=== PATIENT | male | born 1965 | race Caucasian/White ===

== ENCOUNTER 2017-06-25 09:08 | Observation (INO) | payer BC ==
[2017-06-25 10:11] LABS: ABS Basophils 0 10^3/ul (0-0.2); ABS Eosinophils 0.1 10^3/ul (0-0.6); ABS Monocytes 0.6 10^3/ul (0-0.8); ABS Neutrophils 3.9 10^3/ul (1.5-7.7); ABS Nucleated RBC 0 10^3/ul; Eosinophil % 1.6 % (0-6); Hematocrit 42 % (42-52); Hemoglobin 14.9 g/dl (14.0-18.0); Lymphocyte % 17.5 % (25-47); Mean Corpuscular HGB Conc 36 g/dl (31-36); Mean Corpuscular Hemoglobin 32 pg (27-31); Mean Corpuscular Volume 89 fL (80-94); Mean Platelet Volume 8.3 um3 (7.4-10.4); Nucleated Red Blood Cells % 0; Platelet Count 126 10^3/ul (150-450); Red Blood Count 4.73 10^6/ul (4.0-5.4); Red Cell Distribution Width 13 % (10.5-15); White Blood Count 5.7 10^3/ul (3.5-10.8)
[2017-06-25 10:34] LABS: EGFR Non-African American 55.8 (>60)
--- NOTE | 2017-06-25 10:37 | RAD ---
INDICATION: Hypertension COMPARISON: None TECHNIQUE: An AP portable view obtained at 1007 hours is submitted. FINDINGS: Bones/Soft Tissues: There are no acute bony findings. Cardiomediastinal: The cardiomediastinal silhouette is normal. Lungs: There are no infiltrates. Pleura: There are no pleural effusions. Other: None IMPRESSION: NO ACTIVE DISEASE.
[2017-06-25] MEDS ORDERED: Aspirin 81 mg CHEW TAB* 81 MG TAB.CHEW PO ONE (11:06)
[2017-06-25] MEDS ORDERED: Metoprolol Tartrate TAB* 25 MG PO ONE (11:06)
[2017-06-25] MEDS ORDERED: Potassium Chlor TAB* 20 MEQ TAB.ER PO ONE ×2 (11:08→16:50)
--- NOTE | 2017-06-25 11:16 | ED ---
Amos Dow Gabriel, scribed for Kevin Serrano MD on 06/25/17 at 0954 . Hypertension - HPI Summary HPI Summary: This patient is a 51 year old M presenting to [facility] c/o blurred vision that began this morning. Pt began taking 2.5mg of indapamide 9 days ago, 7 days ago the pt began having ZHONG, nausea, and back pain. Pt slept most of the day yesterday but felt slightly better this morning. He believes he is having a poor reaction to his new medication. He states his vision is fine up close but he is unable to see anything far away. Patient reports one episode of diarrhea. Patient denies eye pain and ZHONG. - History of Current Complaint Chief Complaint: EDHypertension Stated Complaint: GENERAL ILL, POSS REACTION TO MED Time Seen by Provider: 06/25/17 09:34 Hx Obtained From: Patient Onset/Duration: Still Present Timing: Constant Associated Signs & Symptoms: Negative - eye pain and ZHONG, Other: - one episode of diarrhea and blurred vision - Allergies/Home Medications Allergies/Adverse Reactions: Allergies Allergy/AdvReac Type Severity Reaction Status Date / Time cephalexin [From Keflex] Allergy Diarrhea Verified 06/25/17 09:20 Home Medications: Home Medications Indapamide TAB* [Lozol TAB*] 2.5 mg PO DAILY 06/25/17 [History Confirmed ] Losartan TAB* [Cozaar TAB*] 100 mg PO DAILY 06/25/17 [History Confirmed 06/25/17 ] Metoprolol Succinate XL TAB* [Toprol XL TAB*] 50 mg PO DAILY 06/25/17 [History Confirmed 06/25/17] amLODIPine TAB* [Norvasc 5 mg TAB*] 10 mg PO DAILY 06/25/17 [History Confirmed 06/25/17] PMH/Surg Hx/FS Hx/Imm Hx Endocrine/Hematology History: Denies: Hx Blood Disorders, Hx Blood Transfusions, Hx Bone Marrow Disease, Hx Diabetes, Hx Thyroid Disease, Hx Anemia Cardiovascular History: Reports: Hx Hypertension Denies: Hx Angioplasty, Hx Hypercholesterolemia Respiratory History: Denies: Hx Chronic Obstructive Pulmonary Disease (COPD) GI History: Denies: Hx Gall Bladder Disease History: Reports: Other Problems/Disorders - prostate CA Sensory History: Reports: Hx Contacts or Glasses Opthamlomology History: Reports: Hx Contacts or Glasses EENT History: Denies: Pharyngitis Psychiatric History: Denies: Hx Community Mental Health Tx - Cancer History Cancer Type, Location and Year: Prostate Infectious Disease History: No Infectious Disease History: Denies: Traveled Outside the [place] in Last 30 Days - Family History Known Family History: Positive: Cardiac Disease, Hypertension, Respiratory Disease Negative: Diabetes, Renal Disease - Social History Occupation: Employed Full-time Alcohol Use: None Substance Use Type: Reports: None Smoking Status (MU): Never Smoked Tobacco Review of Systems Eyes: Negative - eye pain Positive: Blurred Vision Positive: Diarrhea, Nausea Musculoskeletal: Other - back pain Negative: Headache All Other Systems Reviewed And Are Negative: Yes Physical Exam - Summary Physical Exam Summary: VITAL SIGNS: Reviewed. GENERAL: Patient is a well-developed and nourished male who is lying comfortable in the stretcher. Patient is not in any acute respiratory distress. HEAD AND FACE: No signs of trauma. No ecchymosis, hematomas or skull depressions. No sinus tenderness. EYES: PERRLA, EOMI x 2, No injected conjunctiva, no nystagmus. EARS: Hearing grossly intact. Ear canals and tympanic membranes are within normal limits. MOUTH: Oropharynx within normal limits. NECK: Supple, trachea is midline, no adenopathy, no JVD, no carotid bruit, no c- spine tenderness, neck with full ROM. CHEST: Symmetric, no tenderness at palpation LUNGS: Clear to auscultation bilaterally. No wheezing or crackles. CVS: Regular rate and rhythm, S1 and S2 present, no murmurs or gallops appreciated. ABDOMEN: Soft, non-tender. No signs of distention. No rebound no guarding, and no masses palpated. Bowel sounds are normal. EXTREMITIES: FROM in all major joints, no edema, no cyanosis or clubbing. NEURO: Alert and oriented x 3. No acute neurological deficits. Speech is normal and follows commands. SKIN: Dry and warm Vision acuity: with glasses 20/25 left and 20/20 right Triage Information Reviewed: Yes Vital Signs On Initial Exam: Initial Vitals Temp Pulse Resp BP Pulse Ox 98.3 F 92 18 145/79 96 06/25/17 09:12 06/25/17 09:12 06/25/17 09:12 06/25/17 09:12 06/25/17 09:12 Vital Signs Reviewed: Yes Diagnostics - Vital Signs Vital Signs Temp Pulse Resp BP Pulse Ox 06/25/17 09:12 98.3 F 92 18 145/79 96 - Laboratory Lab Results: Lab Results 06/25/17 06/25/17 06/25/17 Range/Units 10:03 10:03 10:03 WBC 5.7 (3.5-10.8) 10^3/ul RBC 4.73 (4.0-5.4) 10^6/ul Hgb 14.9 (14.0-18.0) g/dl Hct 42 (42-52) % MCV 89 (80-94) fL MCH 32 H (27-31) pg MCHC 36 (31-36) g/dl RDW 13 (10.5-15) % Plt Count 126 L (150-450) 10^3/ul MPV 8.3 (7.4-10.4) um3 Neut % (Auto) 69.1 (38-83) % Lymph % (Auto) 17.5 L (25-47) % Platte % (Auto) 11.1 H (0-7) % Eos % (Auto) 1.6 (0-6) % Baso % (Auto) 0.7 (0-2) % Absolute Neuts (auto) 3.9 (1.5-7.7) 10^3/ul Absolute Lymphs (auto) 1.0 (1.0-4.8) 10^3/ul Absolute Monos (auto) 0.6 (0-0.8) 10^3/ul Absolute Eos (auto) 0.1 (0-0.6) 10^3/ul Absolute Basos (auto) 0 (0-0.2) 10^3/ul Absolute Nucleated RBC 0 10^3/ul Nucleated RBC % 0 Sodium 135 L (139-145) mmol/L Potassium 3.2 L (3.5-5.0) mmol/L Chloride 96 L (101-111) mmol/L Carbon Dioxide 28 (22-32) mmol/L Anion Gap 11 (2-11) mmol/L BUN 18 (6-24) mg/dL Creatinine 1.34 H (0.67-1.17) mg/dL Est GFR ( Amer) 71.7 (>60) Est GFR (Non-Af Amer) 55.8 (>60) BUN/Creatinine Ratio 13.4 (8-20) Glucose 104 H (70-100) mg/dL Lactic Acid 1.0 (0.5-2.0) mmol/L Calcium 9.2 (8.6-10.3) mg/dL Magnesium 1.9 (1.9-2.7) mg/dL Total Bilirubin 0.90 (0.2-1.0) mg/dL AST 34 (13-39) U/L ALT 30 (7-52) U/L Alkaline Phosphatase 80 (34-104) U/L Total Creatine Kinase 318 H (10-223) U/L Troponin I Pending B-Natriuretic Peptide ( - 100) pg/mL Total Protein 7.3 (6.4-8.9) g/dL Albumin 4.2 (3.2-5.2) g/dL Globulin 3.1 (2-4) g/dL Albumin/Globulin Ratio 1.4 (1-3) 05//18 Range/Units 10:03 WBC (3.5-10.8) 10^3/ul RBC (4.0-5.4) 10^6/ul Hgb (14.0-18.0) g/dl Hct (42-52) % MCV (80-94) fL MCH (27-31) pg MCHC (31-36) g/dl RDW (10.5-15) % Plt Count (150-450) 10^3/ul MPV (7.4-10.4) um3 Neut % (Auto) (38-83) % Lymph % (Auto) (25-47) % Platte % (Auto) (0-7) % Eos % (Auto) (0-6) % Baso % (Auto) (0-2) % Absolute Neuts (auto) (1.5-7.7) 10^3/ul Absolute Lymphs (auto) (1.0-4.8) 10^3/ul Absolute Monos (auto) (0-0.8) 10^3/ul Absolute Eos (auto) (0-0.6) 10^3/ul Absolute Basos (auto) (0-0.2) 10^3/ul Absolute Nucleated RBC 10^3/ul Nucleated RBC % Sodium (139-145) mmol/L Potassium (3.5-5.0) mmol/L Chloride (101-111) mmol/L Carbon Dioxide (22-32) mmol/L Anion Gap (2-11) mmol/L BUN (6-24) mg/dL Creatinine (0.67-1.17) mg/dL Est GFR ( Amer) (>60) Est GFR (Non-Af Amer) (>60) BUN/Creatinine Ratio (8-20) Glucose (70-100) mg/dL Lactic Acid (0.5-2.0) mmol/L Calcium (8.6-10.3) mg/dL Magnesium (1.9-2.7) mg/dL Total Bilirubin (0.2-1.0) mg/dL AST (13-39) U/L ALT (7-52) U/L Alkaline Phosphatase (34-104) U/L Total Creatine Kinase (10-223) U/L Troponin I B-Natriuretic Peptide 32 ( - 100) pg/mL Total Protein (6.4-8.9) g/dL Albumin (3.2-5.2) g/dL Globulin (2-4) g/dL Albumin/Globulin Ratio (1-3) Result Diagrams: 06/25/17 10:03 06/25/17 10:03 Lab Statement: Any lab studies that have been ordered have been reviewed, and results considered in the medical decision making process. - EKG 10:06 Cardiac Rate: NL EKG Rhythm: Sinus Rhythm - at 90 BPM EKG Interpretation: No ST elevations, nml axis. Hypertension Course/Dx - Course Assessment/Plan: This patient is a 59-year-old male who presents to the emergency room with a chief complaint of shortness of breath. 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 Patient reports that he has a productive cough with clear discharge. He denies any chest pain or palpitations. In the ED course the patient was placed on a lunchroom monitor, IV access was obtained. He is tender with a DuoNeb and Solu-Medrol for the shortness of breath and possible COPD exacerbation. Blood tests results without any significant abnormality except for glucose of 265 and the C- reactive protein was 6.8. ABG shows pH of 7.3 PCO2 48 PO2 86 and O2 sat 98% 3 L of oxygen. After the patient was given the symptoms have improved except that the patient is a slightly tachycardic between 100 to 110. I offered the patient a chest CTA to rule out PE however the patient reports that he is normal requesting heart rate therefore he declined the chest CTA. he reports that he is feeling better and back to his baseline. Therefore since the chest x -ray shows no pneumonia, he is feeling better the patient will be discharged home with follow-up with PCP. Patient hemodynamically stable at a strain to 3. I discussed all the findings and test results with the patient. Patient was instructed to return to the emergency room immediately if any of the symptoms return or worsens. Plan of care was discussed with the patient and understands and agrees. All questions were answered at patient satisfaction. There were no further complaints or concerns. Lung exam before discharge: CTA B/L. Good air exchange. No wheezing or crackles heard. CVS: S1 and S2 present. No murmurs appreciated. Patient is alert and oriented x 3. Patient is hemodynamically stable. Patient will be discharged home with follow up PCP in the next 2-3 days - Diagnoses Differential Diagnosis/HQI PQRI: Hypertension - COPD, asthma, pneumonia, bronchitis. Provider Diagnoses: COPD exacerbation Discharge - Sign-Out/Discharge Documenting (check all that apply): Discharge/Admit/Transfer - Discharge Plan Condition: Stable Disposition: HOME Referrals: Gage Amezcua MD [Primary Care Provider] - - Billing Disposition and Condition Condition: STABLE Disposition: HOME The documentation as recorded by the Amos avina Gabriel accurately reflects the service I personally performed and the decisions made by me, Kevin Serrano MD.
--- NOTE | 2017-06-25 11:58 | RAD ---
HISTORY: Blurry vision COMPARISONS: None TECHNIQUE: Multiple contiguous axial CT scans were obtained of the head without intravenous contrast. FINDINGS: HEMORRHAGE/INFARCT: There is no hemorrhage or acute infarct. MASSES/SHIFT: There is no mass or shift. EXTRA-AXIAL SPACES: There are no extra-axial fluid collections. SULCI AND VENTRICLES: The sulci and ventricles are normal in size and position for the patient's stated age. CEREBRUM: There are no focal parenchymal abnormalities. BRAINSTEM: There are no focal parenchymal abnormalities. CEREBELLUM: There are no focal parenchymal abnormalities. VESSELS: There is calcification of the cavernous segments of the internal carotid arteries bilaterally and of the distal basilar artery. PARANASAL SINUSES: The paranasal sinuses are clear. ORBITS: The orbits are unremarkable. BONES AND SOFT TISSUE: No bone or soft tissue abnormalities are noted. OTHER: None IMPRESSION: NO ACUTE INTRACRANIAL PATHOLOGY.
[2017-06-25] MEDS ORDERED: Perflutren Lipid Microsphere* 3 ML VIAL ONE (12:17)
--- NOTE | 2017-06-25 12:59 | CONSULT ---
Subjective Date of Service: 06/25/17 Interval History: Date of admission and consult 06/25/2017 PMD: Dr. Amezcua Service Hospitalist CC: recent epigastric discomfort and left neck discomfort, blurry vision today Reason for consult Abnormal troponin level HPI Mr. Brody is a 51 year old man with a history as below who was in his usual state of health until Sunday. On Sunday he developed 4-5 hours of left neck discomfort radiating into back of left head, 20 minutes of right lower back pain, and 8-9 hours of epigastric discomfort total in which he was nauseated and slept on and off throughout. His urged him to go to ER and he declined. He felt well on Sunday. Today he developed blurry vision, called PMD and advised to come to ER. He continues to complain of blurry vision. No headache or focal weakness/sensory changes. Troponin I elevated around 2. BP not severely elevated. EKG shows NSR, inverior q waves associated with T wave inversions. The q wave and TW inversion is slightly more promiment than a 2008 EKG but is otherwise grossly unchanged. Stable on repeat EKG except for presence of PVC's with inferior axis and RBBB morphology in the right precordial leads. Echocardiogram showed normal LV size and function with basal inferior wall hypokinesis which can be a normal variant. Other than blurry vision patient is asymptomatic at this time. Patient was given 324 mg of aspirin Pmhx HTN Prostate cancer in remission Patient denies hx of diabetes, bleeding/blood transfusion or kidney problems. Pshx: Prostate cancer surgery Social Hx: 4-5 beers/day, no drug use or tobacco use Allergies: PCN/kephlex Family hx: Mom TAVR No early ASCVD Medications Active Medications: Amlodipine Besylate (Norvasc Tab*) 10 mg PO DAILY [facility] Aspirin (Aspirin 81 Mg Chew Tab*) 81 mg PO DAILY [facility] Losartan Potassium (Cozaar Tab*) 100 mg PO DAILY [facility] Metoprolol Succinate (Toprol Xl Tab*) 50 mg PO DAILY [facility] Home Medications: Indapamide TAB* [Lozol TAB*] 2.5 mg PO DAILY 06/25/17 [History Confirmed ] Losartan TAB* [Cozaar TAB*] 100 mg PO DAILY 06/25/17 [History Confirmed 06/25/17 ] Metoprolol Succinate XL TAB* [Toprol XL TAB*] 50 mg PO DAILY 06/25/17 [History Confirmed 06/25/17] amLODIPine TAB* [Norvasc 5 mg TAB*] 10 mg PO DAILY 06/25/17 [History Confirmed 06/25/17] Review of Systems - Measurements Intake and Output: Intake and Output Last 24 Hours 06/23/17 06/24/17 06/25/17 06/26/17 06:59 06:59 06:59 06:59 Weight 240 lb - Review of Systems Constitutional Symptoms: Negative: Weight Gain, Weight Loss, Fever, Night Sweats, Unexplained Falls Dermatology: Negative: Rash, Skin Lesions HEENT: Negative: Change in Hearing, Vertigo Eyes: Positive: Change in Vision, Contacts or Glasses Negative: Eye Pain Thyroid: Negative: Thyroid Nodule, Cold Intolerance, Heat Intolerance, Tremor, Frequent Defecation, Constipation, Palpitations, Primary Hypothyroidism, Primary Hyperthyroidism, Weight Loss, Weight Gain Pulmonary: Negative: Cough, Sputum, Hemoptysis, Wheezing, Respiratory Distress, Shortness of Breath, COPD, Asthma, Exercise Intolerance, Home Oxygen Cardiology: Negative: Chest Pain, Shortness of Breath, Palpitations, Swelling of Ankles, Peripheral Vascular Dis, Edema, Faintness, Syncope, Claudication, Paroxysmal Nocturnal Dyspnea, Orthopnea Gastroenterology: Positive: Abdominal Pain, Nausea Negative: Vomiting, Anorexia, Difficulty Swallowing, Constipation, Diarrhea, Blood in Stools, Change in Bowel Habits, Haematemesis, Melena Genital - Urinary: Negative: Dysuria, Hematuria Musculoskeletal: Positive: Other Negative: Joint Pain, Joint Stiffness, Arthritis, Osteoporosis, Low Back Pain Endocrinology: Positive: Obesity Negative: Thyroid Problems, Diabetes, Hyperglycemia, Hypoglycemia, Polydipsia , Polyuria, Pituitary Disease Hematologic/Lymphatic: Negative: Anemia, Easy Brusing, Hx Leukemia, Hx Lymphoma Neurology: Negative: Headaches, Migraines, Change in Balancing, Change in Coordination, Change in Memory, Change in Speech, Hx of Stroke\TIA, Hx Seizures Psychiatry: Negative: Unusual Anxiety, Suicidal Ideation, Hypomania Allergic/Immunologic: Negative: Hx HIV, Immunocompromise Review of Systems Statement: All other review of systems negative, unless stated above. Objective Vital Signs: Temp Pulse Resp BP Pulse Ox 98.3 F 88 23 135/84 94 06/25/17 09:12 06/25/17 11:17 06/25/17 11:17 06/25/17 11:17 06/25/17 11:17 Appearance: nad, pleasant Ears/Nose/Mouth/Throat: Clear Oropharnyx, Mucous Membranes Moist Neck: NL Appearance and Movements; NL JVP, Trachea Midline Respiratory: Symmetrical Chest Expansion and Respiratory Effort, Clear to Auscultation Cardiovascular: NL Sounds; No Murmurs; No JVD, RRR, No Edema Abdominal: NL Sounds; No Tenderness; No Distention Extremities: No Edema, No Clubbing, Cyanosis, - - missing part of digit Skin: No Rash or Ulcers Neurological: Alert and Oriented x 3 Laboratory Results: 06/25/17 10:03 06/25/17 10:03 Total Bilirubin 0.90 mg/dL (0.2-1.0) 06/25/17 10:03 AST 34 U/L (13-39) 06/25/17 10:03 ALT 30 U/L (7-52) 06/25/17 10:03 Alkaline Phosphatase 80 U/L (34-104) 06/25/17 10:03 B-Natriuretic Peptide 32 pg/mL (-100) 06/25/17 10:03 Total Protein 7.3 g/dL (6.4-8.9) 06/25/17 10:03 Albumin 4.2 g/dL (3.2-5.2) 06/25/17 10:03 Globulin 3.1 g/dL (2-4) 06/25/17 10:03 Albumin/Globulin Ratio 1.4 (1-3) 06/25/17 10:03 06/25/17 06/25/17 10:03 12:00 Troponin I 2.13 H* 2.41 H* Diagnostic Imaging: CT 06/25/2017: no acute findings cxr 06/25/2017 No acute findings Assessment/Plan In summary, Mr. Brody is a 51 year old man with a history of hypertension and excessive ETOH use who by history and laboratory evaluation appeared to have a myocardial infarction 2 days ago now presents with blurry vision and a normal brain CT scan. - Continue aspirin - Continue home BP medicatioins - Add lipitor 80 mg po daily (ordered) - Neurology consult and brain MRI pending. - Once ok with neurology would recommend heparin gtt - Would hold off on second anti-platelet for now pending results of above - Pending results of above, cardiac catheterization with intent for revascularization recommended. Risks, benefits and alternatives discussed and patient wishes to proceed. Discussed with Dr. Will. Thank you for allowing me to participate in the cardiovascular care of this patient. Please do not hesitate to contact me with questions or concerns.
--- NOTE | 2017-06-25 13:13 | ED ---
Amos Dow Gabriel, scribed for Kevin Serrano MD on 06/25/17 at 1127 . Hypertension - HPI Summary HPI Summary: This patient is a 51 year old M [facility] c/o blurred vision that began this morning. Pt began taking 2.5mg of indapamide 9 days ago, 7 days ago the pt began having ZHONG, nausea, and back pain. Pt also had mild neck pain yesterday and slept most of the day but felt slightly better this morning. He believes he is having a poor reaction to his new medication. He states his vision is fine up close but he is unable to see anything far away. Patient reports one episode of diarrhea. Patient denies eye pain and ZHONG. - History of Current Complaint Chief Complaint: EDHypertension Stated Complaint: GENERAL ILL, POSS REACTION TO MED Time Seen by Provider: 06/25/17 09:34 Hx Obtained From: Patient Onset/Duration: Still Present Timing: Constant Associated Signs & Symptoms: Negative - eye pain and ZHONG, Other: - one episode of diarrhea, neck pain, and blurred vision - Allergies/Home Medications Allergies/Adverse Reactions: Allergies Allergy/AdvReac Type Severity Reaction Status Date / Time cephalexin [From Keflex] AdvReac Mild Diarrhea Verified 06/25/17 12:18 Home Medications: Home Medications Indapamide TAB* [Lozol TAB*] 2.5 mg PO DAILY 06/25/17 [History Confirmed ] Losartan TAB* [Cozaar TAB*] 100 mg PO DAILY 06/25/17 [History Confirmed 06/25/17 ] Metoprolol Succinate XL TAB* [Toprol XL TAB*] 50 mg PO DAILY 06/25/17 [History Confirmed 06/25/17] amLODIPine TAB* [Norvasc 5 mg TAB*] 10 mg PO DAILY 06/25/17 [History Confirmed 06/25/17] PMH/Surg Hx/FS Hx/Imm Hx Endocrine/Hematology History: Denies: Hx Blood Disorders, Hx Blood Transfusions, Hx Bone Marrow Disease, Hx Diabetes, Hx Thyroid Disease, Hx Anemia Cardiovascular History: Reports: Hx Hypertension Denies: Hx Angioplasty, Hx Hypercholesterolemia Respiratory History: Denies: Hx Chronic Obstructive Pulmonary Disease (COPD) GI History: Denies: Hx Gall Bladder Disease History: Reports: Other Problems/Disorders - prostate CA Sensory History: Reports: Hx Contacts or Glasses Opthamlomology History: Reports: Hx Contacts or Glasses Psychiatric History: Denies: Hx [facility] Tx - Cancer History Cancer Type, Location and Year: Prostate Infectious Disease History: No Infectious Disease History: Denies: Traveled Outside the [place] in Last 30 Days - Family History Known Family History: Positive: Cardiac Disease, Hypertension, Respiratory Disease Negative: Diabetes, Renal Disease - Social History Occupation: Employed Full-time Alcohol Use: None Substance Use Type: Reports: None Hx Tobacco Use: No Smoking Status (MU): Never Smoked Tobacco Review of Systems Eyes: Negative - eye pain Positive: Blurred Vision Positive: Diarrhea, Nausea Musculoskeletal: Other - back pain Positive: Other - neck pain that resolved Negative: Headache All Other Systems Reviewed And Are Negative: Yes Physical Exam - Summary Physical Exam Summary: VITAL SIGNS: Reviewed. GENERAL: Patient is a well-developed and nourished male who is lying comfortable in the stretcher. Patient is not in any acute respiratory distress. HEAD AND FACE: No signs of trauma. No ecchymosis, hematomas or skull depressions. No sinus tenderness. EYES: PERRLA, EOMI x 2, No injected conjunctiva, no nystagmus. EARS: Hearing grossly intact. Ear canals and tympanic membranes are within normal limits. MOUTH: Oropharynx within normal limits. NECK: Supple, trachea is midline, no adenopathy, no JVD, no carotid bruit, no c- spine tenderness, neck with full ROM. CHEST: Symmetric, no tenderness at palpation LUNGS: Clear to auscultation bilaterally. No wheezing or crackles. CVS: Regular rate and rhythm, S1 and S2 present, no murmurs or gallops appreciated. ABDOMEN: Soft, non-tender. No signs of distention. No rebound no guarding, and no masses palpated. Bowel sounds are normal. EXTREMITIES: FROM in all major joints, no edema, no cyanosis or clubbing. NEURO: Alert and oriented x 3. No acute neurological deficits. Speech is normal and follows commands. SKIN: Dry and warm Vision acuity: with glasses 20/25 left and 20/20 right Triage Information Reviewed: Yes Vital Signs On Initial Exam: Initial Vitals Temp Pulse Resp BP Pulse Ox 98.3 F 92 18 145/79 96 06/25/17 09:12 06/25/17 09:12 06/25/17 09:12 06/25/17 09:12 06/25/17 09:12 Vital Signs Reviewed: Yes Diagnostics - Vital Signs Vital Signs Temp Pulse Resp BP Pulse Ox 06/25/17 09:12 98.3 F 92 18 145/79 96 - Laboratory Lab Results: Lab Results 06/25/17 06/25/17 06/25/17 Range/Units 10:03 10:03 10:03 WBC 5.7 (3.5-10.8) 10^3/ul RBC 4.73 (4.0-5.4) 10^6/ul Hgb 14.9 (14.0-18.0) g/dl Hct 42 (42-52) % MCV 89 (80-94) fL MCH 32 H (27-31) pg MCHC 36 (31-36) g/dl RDW 13 (10.5-15) % Plt Count 126 L (150-450) 10^3/ul MPV 8.3 (7.4-10.4) um3 Neut % (Auto) 69.1 (38-83) % Lymph % (Auto) 17.5 L (25-47) % [place] % (Auto) 11.1 H (0-7) % Eos % (Auto) 1.6 (0-6) % Baso % (Auto) 0.7 (0-2) % Absolute Neuts (auto) 3.9 (1.5-7.7) 10^3/ul Absolute Lymphs (auto) 1.0 (1.0-4.8) 10^3/ul Absolute Monos (auto) 0.6 (0-0.8) 10^3/ul Absolute Eos (auto) 0.1 (0-0.6) 10^3/ul Absolute Basos (auto) 0 (0-0.2) 10^3/ul Absolute Nucleated RBC 0 10^3/ul Nucleated RBC % 0 Sodium 135 L (139-145) mmol/L Potassium 3.2 L (3.5-5.0) mmol/L Chloride 96 L (101-111) mmol/L Carbon Dioxide 28 (22-32) mmol/L Anion Gap 11 (2-11) mmol/L BUN 18 (6-24) mg/dL Creatinine 1.34 H (0.67-1.17) mg/dL Est GFR ( Amer) 71.7 (>60) Est GFR (Non-Af Amer) 55.8 (>60) BUN/Creatinine Ratio 13.4 (8-20) Glucose 104 H (70-100) mg/dL Lactic Acid 1.0 (0.5-2.0) mmol/L Calcium 9.2 (8.6-10.3) mg/dL Magnesium 1.9 (1.9-2.7) mg/dL Total Bilirubin 0.90 (0.2-1.0) mg/dL AST 34 (13-39) U/L ALT 30 (7-52) U/L Alkaline Phosphatase 80 (34-104) U/L Total Creatine Kinase 318 H (10-223) U/L Troponin I Pending B-Natriuretic Peptide ( - 100) pg/mL Total Protein 7.3 (6.4-8.9) g/dL Albumin 4.2 (3.2-5.2) g/dL Globulin 3.1 (2-4) g/dL Albumin/Globulin Ratio 1.4 (1-3) 05//18 Range/Units 10:03 WBC (3.5-10.8) 10^3/ul RBC (4.0-5.4) 10^6/ul Hgb (14.0-18.0) g/dl Hct (42-52) % MCV (80-94) fL MCH (27-31) pg MCHC (31-36) g/dl RDW (10.5-15) % Plt Count (150-450) 10^3/ul MPV (7.4-10.4) um3 Neut % (Auto) (38-83) % Lymph % (Auto) (25-47) % [place] % (Auto) (0-7) % Eos % (Auto) (0-6) % Baso % (Auto) (0-2) % Absolute Neuts (auto) (1.5-7.7) 10^3/ul Absolute Lymphs (auto) (1.0-4.8) 10^3/ul Absolute Monos (auto) (0-0.8) 10^3/ul Absolute Eos (auto) (0-0.6) 10^3/ul Absolute Basos (auto) (0-0.2) 10^3/ul Absolute Nucleated RBC 10^3/ul Nucleated RBC % Sodium (139-145) mmol/L Potassium (3.5-5.0) mmol/L Chloride (101-111) mmol/L Carbon Dioxide (22-32) mmol/L Anion Gap (2-11) mmol/L BUN (6-24) mg/dL Creatinine (0.67-1.17) mg/dL Est GFR ( Amer) (>60) Est GFR (Non-Af Amer) (>60) BUN/Creatinine Ratio (8-20) Glucose (70-100) mg/dL Lactic Acid (0.5-2.0) mmol/L Calcium (8.6-10.3) mg/dL Magnesium (1.9-2.7) mg/dL Total Bilirubin (0.2-1.0) mg/dL AST (13-39) U/L ALT (7-52) U/L Alkaline Phosphatase (34-104) U/L Total Creatine Kinase (10-223) U/L Troponin I B-Natriuretic Peptide 32 ( - 100) pg/mL Total Protein (6.4-8.9) g/dL Albumin (3.2-5.2) g/dL Globulin (2-4) g/dL Albumin/Globulin Ratio (1-3) Result Diagrams: 06/25/17 10:03 06/25/17 10:03 Lab Statement: Any lab studies that have been ordered have been reviewed, and results considered in the medical decision making process. - Radiology CXR Radiology Interpretation Completed By: Radiologist - no active disease ED physician has reviewed this radiology report. - EKG 10:06 Cardiac Rate: NL EKG Rhythm: Sinus Rhythm - at 90 BPM EKG Interpretation: No ST elevations, nml axis. 11:02 Cardiac Rate: NL EKG Rhythm: Sinus Rhythm - at 84 BPM EKG Interpretation: several PVCs, no ST elevations Hypertension Course/Dx - Course Assessment/Plan: Patient is a 51-year-old male who presents to the emergency department with chief complaint of blurred vision. He also reports that yesterday he had some neck pain and he thinks is due to a new medications for high blood pressure that he is being taken for a couple days. He denies any chest pain, palpitations, or shortness of breath. Test results without any significant abnormality except for potassium of 3.2, creatinine 1.34, CPK of 318 , and troponin of 2.13. EKG doesnt shows any ST elevations. Because of the increased troponin the patient was given aspirin and Lopressor. I held the nitroglycerin and the patient doesnt have any chest pain. I discussed the case with Dr. Wiley from cardiology and he will consult for the patient. Head CT impression no acute intracranial pathology. I discussed my findings and test results with Dr. Patel who accepted the patient for admission. The patient is hemodynamically stable and he is alert and oriented 3. - Diagnoses Differential Diagnosis/HQI PQRI: Angina, Hypertension, Other - STEMI, non-STEMI , angina, coronary artery disease. Provider Diagnoses: NSTEMI (non-ST elevated myocardial infarction) - Physician Notifications Discussed Care Of Patient With: Ethan Wiley Time Discussed With Above Provider: 11:29 Instructed by Provider To: Other - He has agreed to consult on the pt. - Critical Care Time Critical Care Time: 30-74 min Discharge - Sign-Out/Discharge Documenting (check all that apply): Discharge/Admit/Transfer - admitted to [facility] - Discharge Plan Condition: Fair Disposition: ADMITTED TO [facility] Referrals: Gage Amezcua MD [Primary Care Provider] - Consult Consult: 11:[address] Patel and she has agreed to admit the patient. The documentation as recorded by the Amos avina Gabriel accurately reflects the service I personally performed and the decisions made by me, Kevin Serrano MD.
--- NOTE | 2017-06-25 14:50 | RAD ---
HISTORY: Blurred vision COMPARISONS: CT dated June 25, 2017 TECHNIQUE: The following sequences were obtained of the head: Sagittal T1-weighted images, axial T2-weighted images, axial FLAIR images, axial susceptibility weighted images, axial T1-weighted images. Additionally, axial diffusion-weighted images were obtained with calculated apparent diffusion coefficients. FINDINGS: HEMORRHAGE/INFARCT: There is no hemorrhage or acute infarct. MASSES/SHIFT: There is no mass or shift. EXTRA-AXIAL SPACES/MENINGES: There are no extra-axial fluid collections. SULCI AND VENTRICLES: The sulci and ventricles are normal in size and position for the patient's stated age. CEREBRUM: There are few scattered small foci of elevated T2/FLAIR signal within the subcortical white matter of the right frontal lobe. The largest lesion is seen in the right superior frontal gyrus on axial image 26 measuring 0.4 cm in size. BRAINSTEM: There are no focal parenchymal abnormalities. CEREBELLUM: There are no focal parenchymal abnormalities. The cerebellar tonsils are normal in size and position. SELLA: The sella is normal. PINEAL: The pineal region is clear. CP ANGLE/TEMPORAL BONES: The labyrinthine structures are grossly normal. VESSELS: Normal flow-voids are noted within the visualized vertebral vasculature. DIFFUSION ABNORMALITIES: There are no diffusion abnormalities. PARANASAL SINUSES/MASTOIDS: There is mucosal thickening of ethmoid air cells and frontal sinus. There are small bilateral mastoid effusions. ORBITS: The orbits are unremarkable. BONES AND SOFT TISSUE: No bone or soft tissue abnormalities are noted. OTHER: None IMPRESSION: 1. THERE ARE FEW, SCATTERED, SMALL FOCI OF ELEVATED T2/FLAIR SIGNAL WITHIN THE RIGHT FRONTAL SUBCORTICAL WHITE MATTER. WHILE THESE FINDINGS ARE NONSPECIFIC, THEY CAN BE SEEN IN ASSOCIATION WITH MIGRAINE HEADACHE, THE SEQUELA OF PREVIOUS INFECTION OR INFLAMMATION, AND CHRONIC SMALL VESSEL ISCHEMIA. DEMYELINATING DISEASE IS ALSO WITHIN THE DIFFERENTIAL, BUT IS CONSIDERED LESS LIKELY IN THE ABSENCE OF THE APPROPRIATE CLINICAL PRESENTATION. 2. MILD SINUS MUCOSAL INFLAMMATORY DISEASE, WITHOUT AIR-FLUID LEVEL TO SUGGEST ACUTE SINUSITIS. 3. SMALL BILATERAL MASTOID EFFUSIONS.
--- NOTE | 2017-06-25 15:13 | HP ---
CC: Dr. Amezcua * HISTORY AND PHYSICAL: DATE OF ADMISSION: 06/25/17 PROVIDER: Bunny Bailey NP ATTENDING PHYSICIAN: Dr. Rojo * (report dictated by Bunny Bailey NP). PRIMARY CARE PROVIDER: Dr. Amezcua. CHIEF COMPLAINT: Vision changes. HISTORY OF PRESENT ILLNESS: Mr. Brody is a 51-year-old male with a past medical history of hypertension, hyperlipidemia and obesity, who presents to the emergency department today with complaint of vision changes upon awakening this morning. The patient reports he awoke with blurred vision in his distance vision stating that he had to wear his glasses today which normally he does not do, which does improve his vision somewhat. He offers no other complaints such as headache, weakness, numbness, or tingling. On evaluation in the emergency department, he was noted to have a troponin of 2.13. He reports 2 days ago he did experience acute onset of epigastric pain accompanied with left neck pain which radiates to the back of his head, which lasted approximately 4 to 5 hours , then resolved. He denied chest pain or shortness of breath at that time. He also denied diaphoresis during that episode. He reports yesterday he felt slightly under the weather, but overall states that this is generalized sensation and thought that he was just tired. He was active throughout the day , running errands, and states yesterday afternoon he felt much better. Currently in the emergency department, his only compliant is blurred vision changes. His vision was checked in the emergency department and was noted to be 20:25 with his glasses on. He denies any recent illness, fevers, or chills. He reports prior to Sunday when he experienced left neck and epigastric pain, he has been feeling well. No history of coronary artery disease or DE in the past. Dr. Wiley, importer exporter evaluated the patient in the emergency department and obtained a bedside echo in the ED which shows good wall motion at this time. EKG was obtained for Dr. Amezcua's office in 2007 which shows no acute changes. PAST MEDICAL HISTORY: 1. Hypertension. 2. Obesity. 3. Hyperlipidemia. 4. History of alcohol abuse. 5. Chronic kidney disease. The patient does report that approximately 10 days ago he was started on Lozol by his primary care provider for better blood pressure control. PAST SURGICAL HISTORY: Calcaneal fracture. HOME MEDICATIONS: 1. Losartan 100 mg p.o. daily. 2. Amlodipine 10 mg p.o. daily. 3. Metoprolol succinate XL 50 mg p.o. daily. 4. Lozol 2.5 mg p.o. daily. ALLERGIES: KEFLEX. FAMILY HISTORY: Father has a history of CLL. Mother with history of coronary artery disease. SOCIAL HISTORY: Denies history of tobacco abuse. He reports he drinks 4 to 5 beers daily. Denies any recreational drug use. 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 He is to Rohith Yang who is his healthcare proxy. REVIEW OF SYSTEMS: A 14-point review of systems was performed. All the pertinent positives and negatives as mentioned in the history of present illness. Otherwise is negative. PHYSICAL EXAMINATION GENERAL APPEARANCE: A 51-year-old overweight male, lying in the emergency department stretcher. Alert and oriented x3, in no acute distress. A good historian. VITAL SIGNS: Temperature 98.3, heart rate 91, respirations 20, O2 sat 94% on room air, blood pressure 135/84. HEENT: Head is normocephalic, atraumatic. Pupils are equal and reactive to light. Oropharynx is clear. Moist mucous membranes. Good dentition. NECK: Supple. LUNGS: Clear to auscultation bilaterally. Good aeration throughout. CARDIAC: S1 and S2. Regular rate and rhythm. No murmur, rub, or gallop appreciated. No lower extremity edema noted. No JVD noted. ABDOMEN: Obese, soft, nontender, and nondistended. Normal bowel sounds throughout. EXTREMITIES: No clubbing, cyanosis, or edema. NEUROLOGIC: Cranial nerves II through XII are grossly intact. No focal deficits noted. SKIN: Warm, pink, and dry. No rashes, lesions, or open wounds noted. PSYCH: Appropriate to situation. LABORATORY DATA AND DIAGNOSTIC STUDIES: Sodium 135, potassium 3.2, chloride 96 , carbon dioxide 28, anion gap 11, BUN 18, creatinine 1.34, glucose 104, lactic acid 1.0, calcium 9.2, magnesium 1.9. Total bilirubin 0.90, AST 34, ALT 30, alkaline phosphatase 80, total creatinine kinase 318. Troponin 2.13. BNP 32, total protein 7.3, albumin 4.2. WBC is 5.7, RBC 4.73, Hgb 14.9, HCT 49, MCV 89 , MCH 32, MCHC 36, RDW 13, platelet count 126. Chest x-ray, impression: No active disease. Brain CT, no acute intracranial pathology. EKG, sinus rhythm at a rate of 84. In comparison to prior EKG from 2008, there are no acute changes noted. ASSESSMENT AND PLAN: Mr. Brody is a 51-year-old male with a past medical history of hypertension, hyperlipidemia, chronic kidney disease? who presents to the emergency department today with complaint of blurred vision starting this morning, was found to have an elevated troponin of 2.13 with report of epigastric pain and neck pain 2 days ago. 1. Non-ST elevation myocardial infarction. The patient was seen and evaluated by importer exporter, Dr. Wiley in the emergency department with the bedside echo. The patient has good cardiac wall motion at this time. It is suspected that the patient had a DE two days ago and his troponins most likely are trending down. Second troponin is trending at the time of dictation. Plan to monitor on telemetry, trend troponins, n.p.o. Most likely the plan will be for a cardiac catheterization tomorrow; however, plan to obtain a brain MRI first due to the patient's report of blurred vision. The patient received full strength aspirin of 324 mg in the emergency department. Plan will be for heparin drip if the brain MRI is negative for acute intracranial pathology. Replace electrolytes. We will check hemoglobin A1c, I did not see one on file. 2. Blurred vision. Unclear etiology at this time. Brain CT was negative. . Plan for a brain MRI this afternoon. I have asked neurologist, Dr. Rivas to consult, who will see the patient today. 3. Hypertension. Continue home medications amlodipine 10 mg p.o. daily, metoprolol succinate XL 50 mg p.o. daily, and losartan 100 mg p.o. daily. Hold Lozol as this is a loop diuretic. 4. Chronic kidney disease. Per patient, he denied any history of renal dysfunction. However, looking back at 2012, he did have a noted creatinine of 1.30. 5. Hyperlipidemia. Currently not on a statin. We will check fasting lipid profile in the morning. We will defer this to Cardiology if they want to start him on a statin. 6. DVT prophylaxis. Holding until result of the MRI. 7. Code status. Full code. 8. Hospital status. Observation. TIME SPENT: Approximately 75 minutes was spent on this admission. BUNNY BAILEY, CRIS [id number]/CPS #: [id number] MTDPhi
[2017-06-25] MEDS ORDERED: Heparin DRIP 25,000 UNITS(*) 25,000 UNITS/500 ML BAG IV SCH (16:30)
[2017-06-25] MEDS: Atorvastatin* 80 MG TAB PO SCH (17:03)
[2017-06-25] MEDS: NS 0.9% 1000 ML* 1,000 ML IV SCH (17:28)
[2017-06-25 17:56] LABS: Hematocrit 42 % (42-52); Mean Corpuscular HGB Conc 36 g/dl (31-36); Mean Corpuscular Hemoglobin 32 pg (27-31); Mean Corpuscular Volume 88 fL (80-94); Mean Platelet Volume 8.7 um3 (7.4-10.4); Platelet Count 140 10^3/ul (150-450); Red Blood Count 4.75 10^6/ul (4.0-5.4); Red Cell Distribution Width 13 % (10.5-15); White Blood Count 5.3 10^3/ul (3.5-10.8)
[2017-06-25 18:17] LABS: EGFR Non-African American 60.4 (>60)
--- NOTE | 2017-06-25 20:30 | RAD ---
INDICATION: TIA. Non-ST elevation AR. COMPARISON: No relevant prior exams available on the [facility] for comparison. TECHNIQUE: Bilateral carotid duplex scan. Stenosis estimations reflect velocity criteria that have been correlated to angiographic stenosis calculations based on distal internal carotid diameter. REPORT: RIGHT ICA: 81 cm/s peak systolic 34 cm/s end diastolic CCA: 116 cm/s peak systolic ICA/CCA peak systolic ratio: 0.70 Mild dominant noncalcified plaque at the RIGHT carotid bulb and proximal internal carotid artery. Preserved low resistance internal carotid artery waveforms. Antegrade flow documented at the RIGHT vertebral artery. LEFT ICA: 83 cm/s peak systolic 26 cm/s end diastolic CCA: 120 cm/s peak systolic ICA/CCA peak systolic ratio: 0.69 Mild predominant noncalcified plaque at the LEFT carotid bulb and proximal internal carotid artery. Preserved low resistance internal carotid artery waveforms. Antegrade flow documented at the LEFT vertebral artery. IMPRESSION: Mild atherosclerotic plaque with less than 50% bilateral internal carotid artery stenosis. CPT II Codes: 3100F
--- NOTE | 2017-06-25 21:54 | CONS ---
CC: Dr. Amezcua * NEUROLOGY CONSULTATION: DATE OF CONSULT: 06/25/17 LOCATION: The patient is in the emergency department. REQUESTING PROVIDER: Radha Bautisat NP REASON FOR CONSULT: Blurred vision in the setting of probable myocardial infarction. HISTORY OF PRESENT ILLNESS: Orlando Brody is a 51-year-old man with a history of hypertension, on 4 agents, who presented to the emergency department with the concern for blurred vision, which began this morning. He is not sure if this was present upon awakening, but noticed when he was driving to work that he was not able to see street signs until he was practically right on top of them and he also notes that the yellow line at times seemed to cross or seemed to double. He does have glasses, but does not wear them regularly and leaves them at work. He does not normally have much difficulty with his distance vision and has noticed these problems essentially with distance only, still able to see well up close. He does not have any eye pain. He denied any dysarthria, dysphasia, vertigo, extremity weakness or numbness. He has been lightheaded on and off today which he attributes to his vision problems. These symptoms occurred in the setting of sudden onset of significant left neck pain as well as epigastric pain accompanied by nausea on Sunday (2 days ago). He felt chilled with this episode as well. The neck pain lasted about 5 to 6 hours while the epigastric pain and nausea lasted an hour or two. He did not seek medical attention at that time. He notes that he started indapamide about 8 days ago and wondered whether some of the nausea he experienced on Sunday was related to that. In the course of his workup in the emergency department, his troponin was noted to be very elevated to over 2 and given the new report of blurred vision, Neurology consultation was requested to assess for the presence of a new stroke. I note that Cardiology is considering bringing the patient to the laboratory tester, but at this point, feel that he most likely had a myocardial infarction on Sunday and by report from Radha Bautista NP, think it was most likely a small vessel event given that his EKG is unchanged from previous today. They would also like to start a heparin drip. PAST MEDICAL HISTORY: Hypertension, history of prostate cancer. FAMILY HISTORY: There is a history of heart disease and hypertension in the family, but no known history of strokes. SOCIAL HISTORY: He is a nonsmoker. He drinks 4 to 5 beers nightly and has done so since his 20s. He works at [employer] down the road. REVIEW OF SYSTEMS: As per the HPI, otherwise negative in 14 spheres. PHYSICAL EXAM: Vital Signs: Temperature 98.3, blood pressure 116/93, heart rate 91, oxygen saturation 93% on room air. On general examination, he is in no acute distress. His heart is in regular rate and rhythm with no obvious murmurs, rubs or gallops. There are no carotid bruits. Lungs are clear to auscultation bilaterally. 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 On neurologic examination, he is fully awake, alert, and oriented. His speech is fluent without dysarthria or aphasia. On cranial nerve exam, pupils were equal, round, and reactive from 4 to 2 mm bilaterally. His fundi were flat. Versions were full but there was some nystagmus in the right eye on gaze to the right and he reported diplopia which was horizontal in nature. There was no clear malalignment of the eyes, but when one eye was occluded, this improved but did not completely resolve. He still felt the images looked a little blurry out of each eye independently. Liao are full to confrontation with no extinction to double simultaneous stimulation. Facial sensation and musculature are full and symmetric. Hearing is intact to finger rub. Palate elevates symmetrically and the tongue is midline. On motor exam, he has normal bulk and tone in the upper and lower extremities. Strength is full proximally and distally with no pronator drift. Sensation is intact to light touch in the upper and lower extremities. Reflexes were difficult to elicit throughout with down-going toes. [id number] was without ataxia. Romberg was negative. I did not ambulate him. DIAGNOSTIC STUDIES/LAB DATA: CMP showed a sodium of 135, potassium 3.2, chloride 96, creatinine 1.34 with a baseline between 1.17 and 1.3 normally from what we have in the computer. CK 318. Troponin 2.13 at 10 a.m., which is now 2.41 at noon. His BNP was normal. LFTs were normal. His CBC was notable for slightly low platelet count of 126. I reviewed his noncontrasted brain CT which was a normal study. IMPRESSION AND PLAN: Orlando Brody is a 51-year-old man with a history of hypertension, requiring 4 agents for control, who presented with new onset of blurred vision in the setting of left neck and epigastric pain 2 days ago, found to have elevated troponins. On exam, he developed some increased difficulty with his vision and endorses diplopia on right gaze and there is some nystagmus of the abducting eye. I am concerned that he may have had a small midbrain stroke in the setting of his apparent myocardial infarction. I discussed with Dr. Wiley from Cardiology the urgency of the heparin drip and he felt prior to my seeing the patient that it would be acceptable to wait until he goes for MRI to better define whether are any areas of ischemia. Based on my evaluation of him now, I do think that he had some brainstem insult most likely and his MRI is pending this afternoon. He will have some additional laboratory data in terms of his stroke workup including an A1c and lipid profile. I will continue to follow him to assist Cardiology with potential plans for a catheterization during this hospitalization, which could be more risky during this hospitalization given the probability of a new small stroke. [id number]/[facility] #: [id number] PAIGE
[2017-06-26] MEDS: NS 0.9% 1000 ML* 1,000 ML IV SCH ×2 (03:38→15:48)
[2017-06-26 05:33] LABS: ABS Basophils 0.1 10^3/ul (0-0.2); ABS Eosinophils 0.3 10^3/ul (0-0.6); ABS Lymphocytes 1.8 10^3/ul (1.0-4.8); ABS Monocytes 0.7 10^3/ul (0-0.8); ABS Neutrophils 1.9 10^3/ul (1.5-7.7); ABS Nucleated RBC 0 10^3/ul; Eosinophil % 6.4 % (0-6); Hematocrit 41 % (42-52); Hemoglobin 14.6 g/dl (14.0-18.0); Lymphocyte % 36.7 % (25-47); Mean Corpuscular HGB Conc 36 g/dl (31-36); Mean Corpuscular Hemoglobin 32 pg (27-31); Mean Corpuscular Volume 89 fL (80-94); Mean Platelet Volume 8.7 um3 (7.4-10.4); Nucleated Red Blood Cells % 0.1; Platelet Count 133 10^3/ul (150-450); Red Cell Distribution Width 13 % (10.5-15); White Blood Count 4.8 10^3/ul (3.5-10.8)
[2017-06-26 05:49] LABS: EGFR Non-African American 62.1 (>60)
[2017-06-26] MEDS ORDERED: Aspirin 81 mg CHEW TAB* 81 MG TAB.CHEW PO SCH ×2 (06:00→09:00)
[2017-06-26] MEDS: Atorvastatin* 80 MG TAB PO SCH (07:36)
[2017-06-26] MEDS ORDERED: Heparin 2 UNITS/ML IVPREMIX* 2,000 ML IV ONE (07:51)
[2017-06-26] MEDS ORDERED: Iodixanol* (CONTRAST) 320 MG/ML 100 ML SDV ONE (07:51)
[2017-06-26] MEDS ORDERED: Lidocaine 1% INJ* 10 MG/ML 30 ML SDV ONE (07:52)
[2017-06-26] MEDS ORDERED: Heparin(*) 1000 UNIT/ML 10 ML VIAL CATH LAB IV ONE (08:11)
[2017-06-26] MEDS ORDERED: Midazolam* 1 MG/ML 10 ML VIAL (10 MG) ONE (08:12)
[2017-06-26] MEDS ORDERED: nitroGLYCERIN DRIP* 25,000 MCG/250 ML BTL ONE (08:12)
[2017-06-26] MEDS ORDERED: fentaNYL* 50 MCG/ML 2 ML VIAL (100 MCG VIAL) ONE (08:12)
[2017-06-26] MEDS ORDERED: VERAPAMIL 2.5 MG/ML 2 ML VIAL ** 5 mg/2 ml ONE (08:12)
[2017-06-26] MEDS ORDERED: amLODIPine TAB* 5 MG PO SCH (09:00)
[2017-06-26] MEDS ORDERED: Losartan TAB* 25 MG PO SCH (09:00)
[2017-06-26] MEDS ORDERED: Metoprolol Succinate XL TAB* 50 MG PO SCH (09:00)
[2017-06-26] MEDS ORDERED: Heparin VIAL(*) 5000 UNITS/ML VIAL (FIVE THOUSAND) SUBCUT SCH (14:00)
--- NOTE | 2017-06-26 14:33 | PN ---
Subjective Date of Service: 06/26/17 Interval History: f/u nstemi, tia patient denies any chest, gi discomfort brain mri negative Medications Active Medications: Amlodipine Besylate (Norvasc Tab*) 10 mg PO DAILY [facility] Last Admin: 06/26/17 07:37 Dose: 10 mg Aspirin (Aspirin 81 Mg Chew Tab*) 81 mg PO 0600 [facility] Last Admin: 06/26/17 06:09 Dose: 81 mg Atorvastatin Calcium (Lipitor*) 80 mg PO DAILY [facility] Last Admin: 06/26/17 07:36 Dose: 80 mg Heparin Sodium (Porcine) (Heparin Vial(*)) 5,000 units SUBCUT Q8HR [facility] Last Admin: 06/26/17 14:05 Dose: 5,000 units Sodium Chloride (Ns 0.9% 1000 Ml*) 1,000 mls @ 100 mls/hr IV PER RATE [facility] Last Admin: 06/26/17 03:38 Dose: 100 mls/hr Losartan Potassium (Cozaar Tab*) 100 mg PO DAILY [facility] Last Admin: 06/26/17 07:37 Dose: 100 mg Metoprolol Succinate (Toprol Xl Tab*) 50 mg PO DAILY [facility] Last Admin: 06/26/17 07:37 Dose: 50 mg Objective Vital Signs: Temp Pulse Resp BP Pulse Ox 98.1 F 79 16 133/83 96 06/26/17 11:26 06/26/17 11:26 06/26/17 11:26 06/26/17 11:26 06/26/17 11:26 Oxygen Devices in Use Now: None Appearance: nad, pleasant Ears/Nose/Mouth/Throat: Clear Oropharnyx, Mucous Membranes Moist Neck: NL Appearance and Movements; NL JVP, Trachea Midline Respiratory: Symmetrical Chest Expansion and Respiratory Effort, Clear to Auscultation Cardiovascular: NL Sounds; No Murmurs; No JVD, RRR, No Edema Abdominal: NL Sounds; No Tenderness; No Distention Extremities: No Edema, No Clubbing, Cyanosis, - - missing part of digit Skin: No Rash or Ulcers Neurological: Alert and Oriented x 3 Laboratory Results: APTT 28.1 seconds (26.0-36.3) 06/26/17 11:10 Total Bilirubin 0.90 mg/dL (0.2-1.0) 06/25/17 10:03 AST 34 U/L (13-39) 06/25/17 10:03 ALT 30 U/L (7-52) 06/25/17 10:03 Alkaline Phosphatase 80 U/L (34-104) 06/25/17 10:03 B-Natriuretic Peptide 32 pg/mL (-100) 06/25/17 10:03 Total Protein 7.3 g/dL (6.4-8.9) 06/25/17 10:03 Albumin 4.2 g/dL (3.2-5.2) 06/25/17 10:03 Globulin 3.1 g/dL (2-4) 06/25/17 10:03 Albumin/Globulin Ratio 1.4 (1-3) 06/25/17 10:03 Triglycerides 214 mg/dL 06/26/17 05:22 Cholesterol 174 mg/dL 06/26/17 05:22 LDL Cholesterol 99 mg/dL 06/26/17 05:22 HDL Cholesterol 31.9 mg/dL 06/26/17 05:22 Diagnostic Imaging: CT 06/25/2017: no acute findings cxr 06/25/2017 No acute findings Assessment/Plan In summary, Mr. Brody is a 51 year old man with a history of hypertension and excessive ETOH use 4 beers/day a/w small NSTEMI, TIA blurry vision, LVEF normal. Brain MRI normal. No diabetes - Cath today showed MVD, no prox LAD or LM lesion but given extensive disease, 3 separate interventionalist felt could be done by PCI but cabg would be prefered and patient prefers this option. Patient will have cath CD with him at time of transfer. - Did not receive an additional anti-platelet other than aspirin this admission - Continue medications as above - Needs Neuro f/u pre-op at [facility] - Discussed with Dr. Randhawa who has agreed to accept this patient to CV surgery service Thank you for allowing me to participate in the cardiovascular care of this patient. Please do not hesitate to contact me with questions or concerns.
--- NOTE | 2017-06-26 15:48 | PN ---
PROGRESS NOTE: DATE OF FOLLOWUP: 06/26/17 HISTORY: The patient reports that his blurred/double vision is slightly improved, but definitely not at his baseline. He had diagnostic angiogram this morning and by report from Dr. Will as well as Dr. Wiley, he has multivessel disease. They are currently discussing stent versus CABG with the patient. His MRI scan did not show any evidence of acute stroke yesterday. Since his cardiac catheterization this morning, he has started to develop slight frontal headache. He continues to deny any eye pain. MEDICATIONS: 1. Amlodipine 10 mg daily. 2. Aspirin 81 mg daily. 3. Lipitor 80 mg daily. 4. Cozaar 100 mg daily. 5. Metoprolol 50 mg daily. 6. Normal saline. 7. He is currently no longer on the heparin drip. PHYSICAL EXAMINATION: Vital Signs: Temperature 97.8, blood pressure 138/80, heart rate 70, oxygen saturation 95% on room air. On general examination, he is in no acute distress. His heart is in a regular rate and rhythm. Lungs are clear to auscultation bilaterally. He has Tegaderm over the right radial catheterization site and the block is present on his right wrist. Pupils are equal, round, and reactive from 3 to 2 mm bilaterally. His versions are full. There is no clear nystagmus, but on end gaze to the right he again reports diplopia, which improves with 1 eye occluded. However, again, text across the room appears blurry with each eye tested independently and his vision is not at his baseline. Liao were full to confrontation. Facial sensation and musculature is full and symmetric. Hearing is intact to finger rub. Palate elevates symmetrically and the tongue is midline. On motor testing, he has full strength in the upper and lower extremities with no pronator drift. Sensation is intact to temperature throughout. Reflexes are 1+ in the upper extremities, 2+ at the knees, difficult to elicit at the ankles with downgoing toes. Finger- to-nose and pucg-so-sdug are without ataxia. I did not ambulate him today. DIAGNOSTIC STUDIES/LAB DATA: His BMP shows improvement in his creatinine to 1.22 today, sodium of 135, chloride of 100, glucose of 119. Hemoglobin A1c is 5.5. Cholesterol studies show triglycerides of 214, total cholesterol 174, LDL 99, HDL 31.9. CBC shows his platelets to be 133, hematocrit 41, hemoglobin 14.6 , white count 4.8. His PTT is normal as of 12/15/16 and was 44.9 on 06/26/17. MRI scan of the brain was reviewed and there are a few small foci of elevated T2 - FLAIR signal in the subcortical white matter of the right frontal lobe, which are nonspecific in nature. There are no areas of diffusion restriction. There is also mild sinus inflammatory disease and small bilateral mastoid effusions. His echocardiogram showed mild concentric LVH with an EF of 55% to 60% with a hypokinetic basal inferior wall segment. A bubble study was not performed. A carotid Doppler study was done yesterday, which showed mild plaque and less than 50% stenosis in the bilateral carotid arteries. Both vertebral arteries show antegrade flow. IMPRESSION AND PLAN: Orlando Brody is a 51-year-old man with a history of hypertension, who most likely experienced myocardial infarction on 06/23/17 and presented yesterday to the emergency department because of blurred/double vision. His MRI scan yesterday was negative for any areas of acute stroke, but he continues to have vision difficulties where he has double vision on right horizontal gaze, which somewhat resolves with 1 eye occluded, but he also continues to have blurred vision when each eye is tested independently at a distance which is not his typical baseline. The double vision could potentially be explained by a small brainstem infarct or ischemic injury to the right 6th nerve, but it is more difficult to explain his monocular decreased vision in both eyes unless he had small ischemic insults to both eyes individually as well. His cardiac catheterization reportedly showed significant multivessel disease and he requires some additional intervention whether with stenting or CABG. The Cardiology Team is discussing his options with him. In terms of risks, we will repeat MRI scan of the brain without contrast tomorrow and I have requested that thin cuts be obtained through the brainstem especially on the diffusion sequences to see if we can pinpoint any area of ischemia. I discussed with him, that if this is negative, further evaluation to be considered as an outpatient and would include an ophthalmologic exam for his vision complaints. I will try to assist cardiology with risk stratification in terms of planned cardiac procedures. I will continue to follow the patient along with you. [id number]/[facility] #: [id number] PAIGE
--- NOTE | 2017-06-26 16:04 | TRS ---
CC: Dr. Gage Amezcua; Dr. Alistair Wiley; Dr. Vero Rivas* DATE OF ADMISSION: 06/25/2017. DATE OF TRANSFER: 06/26/2017. ADMITTING PHYSICIAN: Dr. Henna Rojo. ATTENDING HOSPITALIST: Dr. Orlando Perry* (dictated by NAYA Sorensen). CONSULTATIONS: Dr. Wiley and Dr. Will. ADMISSION DIAGNOSES: 1. Visual changes. 2. Epigastric pain two days ago. 3. Hypertension. 4. Morbid obesity. 5. Hyperlipidemia. 6. History of alcohol abuse. 7. Chronic kidney disease. DISCHARGE DIAGNOSES: 1. Visual changes. 2. Epigastric pain two days ago. 3. Hypertension. 4. Morbid obesity. 5. Hyperlipidemia. 6. History of alcohol abuse. 7. Chronic kidney disease. 8. Non STEMI. 9. Acute coronary syndrome. HISTORY OF PRESENT ILLNESS: Mr. Brody is a pleasant, 51-year-old gentleman with a past medical history significant for hypertension, hyperlipidemia, and obesity who presented to the emergency room yesterday with complaints of visual changes upon awakening this morning. The patient notes that his blurred vision was noted when he tried to look at a distance and he thought that he needed to wear his glasses, however when he did it did not change his visual changes. His visual change has improved since presentation to the ED and he offered no complaints of headache, weakness, numbness or tingling. The patient was evaluated in the emergency room and he was noted to have a troponin of 2.13. He did report that two days ago he experienced acute onset of epigastric pain that radiated to his left neck and back and lasted approximately four to five hours and then resolved. He denied any shortness of breath or diaphoresis when that happened. During his emergency room visit, he was noted to have a troponin of 2.13 and EKG that revealed no acute changes or ST elevations. Given his risk factors and elevated troponin, the patient was admitted to the telemetry unit for observation and obtaining troponin series. HOSPITAL COURSE: The patient was admitted on 06/25/2017 and cardiac consultation was obtained by Dr. Wiley and Dr. Will. The patient was found to have no changes in his EKG upon repetition. He also had possible history of stroke for which Dr. Rivas from the Neurology Department was also asked to provide consultation. Given his blurred vision and the probability of myocardial infarction, it was necessary to see if there was any risk for hemorrhagic stroke before initiating any anticoagulation therapy. The patient was evaluated by Neurology and had a CT of the brain that was normal. He went on and had a carotid Doppler study as well that revealed approximately 50 percent narrowing to the bilateral internal carotids, as well as mild atherosclerotic changes. The patient also had a brain MRI to rule out any possibility of brain ischemia or infarct and that was essentially negative. He was kept NPO and was monitored closely in the Telemetry Unit. His vitals were stable and his blood pressure continued to be in the 120s and 130s for systolic. He denies any recurrent dizziness, blurred vision, or chest pain. He went to the Cardiac Cath Unit this morning and had cardiac catheterization that revealed significant occlusion to the right coronary and circumflex artery. Please refer to attached cardiac catheterization note done by Dr. Will. Given his ongoing symptoms and the finding of the cardiac catheterization today, there were options given to the patient including multiple stent placement and chronic antiplatelet therapy versus proceeding with coronary artery bypass graft. The patient had a long discussion with Dr. Wiley, his machine sneller, and the decision was eventually made to be transferred to [facility] after approval from Dr. Randhawa from Cardiovascular Surgery who accepted the patient for possible surgical intervention. The patient is currently stable in the Telemetry Unit awaiting a call back from [facility] upon bed availability for a transfer and possible CABG surgery possibly in the morning. I went on and discussed with the patient the rationale, indications, risks, and benefits of his transfer. He agreed to all the plans after he spoke to Dr. Wiley and we will transfer him to [facility] as planned above. MEDICATIONS: His ambulatory home medications include: 1. Norvasc 10 mg p.o. daily. 2. Lozol 2.5 mg p.o. daily. 3. Cozaar 100 mg p.o. daily. 4. Metoprolol 50 mg p.o. daily. Currently he is getting IV fluid at normal saline 0.9% at 100 cc per hour, and he has experienced no chest pain with stable vitals. Await transfer to [facility]. [place] [id number]/[facility] #: [id number] PAIGE
[2017-06-26 16:19] LABS: ABS Basophils 0 10^3/ul (0-0.2); ABS Eosinophils 0.2 10^3/ul (0-0.6); ABS Lymphocytes 1.3 10^3/ul (1.0-4.8); ABS Monocytes 0.9 10^3/ul (0-0.8); ABS Nucleated RBC 0 10^3/ul; Eosinophil % 5.3 % (0-6); Hematocrit 43 % (42-52); Hemoglobin 14.9 g/dl (14.0-18.0); Lymphocyte % 29.6 % (25-47); Mean Corpuscular HGB Conc 35 g/dl (31-36); Mean Corpuscular Hemoglobin 31 pg (27-31); Mean Corpuscular Volume 89 fL (80-94); Mean Platelet Volume 8.7 um3 (7.4-10.4); Nucleated Red Blood Cells % 0; Platelet Count 141 10^3/ul (150-450); Red Blood Count 4.77 10^6/ul (4.0-5.4); Red Cell Distribution Width 13 % (10.5-15); White Blood Count 4.4 10^3/ul (3.5-10.8)
[2017-06-26 16:44] VITALS: BP 134/74
[2017-06-26] MEDS ORDERED: Acetaminophen TAB* 325 MG PO ONE (17:00)
--- NOTE | 2017-06-27 10:56 | CATH ---
CC: Dr. Gage Amezcua; Dr. Alistair Wiley * CARDIAC CATHETERIZATION REPORT: DATE OF PROCEDURE: 06/26/17 The indication for the cardiac catheterization asked by Dr. Alistair Wiley, the patient's primary campus wellness coordinator, in the hospital, to perform cardiac catheterization in light of presentation with probable recent inferior wall myocardial infarction with abnormal cardiac enzymes and inferior wall motion abnormality. PROCEDURE: Coronary arteriography. The patient was interviewed and examined on the erazo of the hospital where the risks and benefits were explained. He understood them, and wished to proceed. EQUIPMENT USED: 1. Right radial artery sheath, a 6-Turkmen glide sheath. 2. Diagnostic coronary catheter, a 5-Turkmen TIG4 curve catheter. 3. Exchange wire, a 260-cm length Barton curved guidewire. APPROACH: Right radial artery. LABORATORY RESULTS: Precardiac catheterization: BUN and creatinine of 19 and 1.2, with a potassium of 3.5. Hemoglobin and hematocrit of 14.6 and 41, with a platelet count of 133,000. MEDICATIONS GIVEN IN THE PROCEDURE: Versed 1 mg intravenously. DESCRIPTION OF PROCEDURE: The patient was brought to the cardiovascular laboratory where a formal time-out was performed. It had already been determined that his right radial artery was of an adequate size for an approach by ultrasound assessment. The patient was prepped and draped in a sterile fashion. The right radial artery area was anesthetized with 1% lidocaine, right radial artery was cannulated, and the glide sheath was placed. Coronary arteriography was performed utilizing the 5-Turkmen TIG4 curve catheter. Following this, the catheter was removed. A Vasc-Band was placed and assessed for the reverse Barbeau, which was found to be a B. The patient was transported to the holding area for radial band management. Total contrast used was 75 cc of visipaque. Radiation exposure was 4.3 mins of fluoro time. Air Kerma - 1013 mGy, DAP 6017 mcGy/m2 RESULTS: CORONARY ARTERIOGRAPHY: A. Right coronary artery - a dominant vessel supplying the PDA and two posterior left ventricular branches. There was diffuse disease seen in the proximal segment with luminal reductions of 45% to 50%. Just prior to a bifurcating acute marginal branch, there was a 75% obstruction seen, eccentric in nature. Surrounding this area was moderate diffuse disease as well. Just past the bifurcating acute marginal branch was another area of 60% to 65% stenosis followed by 95% stenosis just as the artery turned onto the inferior surface of the heart. The artery distal to this region did not show any significant obstructions. B. Left coronary artery. 1. Left main - widely patent with minimal tapering of the distal left main. 2. Left anterior descending artery. The left anterior descending artery had moderate luminal reduction after a high first diagonal branch. The area of reduction appeared to be approximately 40% to 45%. Past this point was diffuse disease with an area of 65% to 70% stenosis just after the first septal telegraph service rater. Past this point was another area of 50% stenosis seen in the mid segment. The distalmost segment of the left anterior descending artery appeared to have a narrowing as much as 75% to 80%, after which there was an area of the left anterior descending artery that wrapped around the apex. The first diagonal branch bifurcated quickly with a medial branch that paralleled the LAD, which had a significant 70% to 75% stenosis. The more lateral branch had no significant obstruction, but was clearly a smaller caliber vessel. 3. Circumflex artery - a non-dominant vessel supplying a very thin first obtuse marginal branch with diffuse disease seen past this with narrowing as much as 65% for a long segment. The second obtuse marginal branch was a small caliber vessel. The third obtuse marginal branch bifurcated into a superior and inferior branch. The superior branch had a 95% stenosis just after its bifurcation, and the inferior branch had an 85% to 90% obstruction noted. Of note - there was competitive flow seen to the lower branch from collaterals that appeared to be established from a diagonal branch. OVERALL ASSESSMENT: Significant multivessel disease as described above involving the proximal to mid right coronary artery and distal right coronary artery, the origins of the superior and inferior branches of the last obtuse marginal branch, as well as the proximal portion of the medial branch of the first diagonal branch. There was moderate to significant disease involving the mid LAD, as well as the proximal to mid circumflex, and throughout the proximal and mid area of the right coronary artery. This information was shared with Dr. Alistair Wiley, the patient's primary campus wellness coordinator. Further management will be under the guidance of Dr. Wiley with the above information shared. [id number]/[facility] #: [id number] [facility]
== END 2017-06-26 17:16 | disposition short-term general hospital (02) ==
LOC: ED 09:08 → MEDTELE 12:48 → INTOOBSV 06-26 09:30 → OBSVTOIN 06-26 09:30
PROVIDERS: ADMIT Internal Medicine; ATTEND Internal Medicine
DX: H53.9 Unspecified visual disturbance (principal); I21.4 Non-ST elevation (NSTEMI) myocardial infarction; I25.10 Atherosclerotic heart disease of native coronary artery without angina pectoris; R10.13 Epigastric pain; E66.01 Morbid (severe) obesity due to excess calories; E78.5 Hyperlipidemia, unspecified; F10.21 Alcohol dependence, in remission; N28.9 Disorder of kidney and ureter, unspecified; Z85.46 Personal history of malignant neoplasm of prostate; Z79.82 Long term (current) use of aspirin; Z95.5 Presence of coronary angioplasty implant and graft
CPT/HCPCS: 36415; 70450; 70551; 71045; 76937; 80048; 80053; 80061; 82550; 82565; 83036; 83605; 83735; 83880; 84484; 84520; 85025; 85027; 85730; 93005; 93306; 93454; 93880; 96374; 99284; A9270-GY; C8929; G0378; J1644; J2250; J3010